=== PATIENT | male | born 1995 | race Caucasian/White ===

== ENCOUNTER 2020-12-25 23:19 | Emergency (ER) | payer MEDICAID ==
[~2020-12-25] VITALS: Ht 182.9 cm; Wt 78.0 kg
[2020-12-25 23:31] VITALS: BP 150/105
--- NOTE | 2020-12-25 23:32 | NUR ---
PATIENT AMBUALTED TO LOBBY WITH STEADY GAIT.
--- NOTE | 2020-12-25 23:35 | NUR ---
PATIENT BIB SELF FOR C/O POSSIBLE ALERGIC REACTION S/P TAKING PEP. PATIENT STATES FACIAL BURNING AND TINGLING. AIRWAY PATENT AND CLEAR. NO RESP DISTRESS NOTED. NO HIVES, RASHES NOTED. A&OX4. ABLE TO SWALLOW SALIVA. +LIGHT SENSITIVITY AND LT TEMPORAL GARCÍA. 7/10 PAIN. NO ASYMMETRICAL SMILE, STEEL ROD BUSTER, OR SENSATION. VSS. SPO2 98%. NKDA. PMH: DENIES.
--- NOTE | 2020-12-25 23:50 | NUR ---
PATIENT AMBUALTED TO BED 1 WITH STEADY GAIT.
--- NOTE | 2020-12-26 00:08 | NUR ---
GARY Freeman at bedside for Medical Evaluation.
[2020-12-26] MEDS ORDERED: GABAPENTIN 300 MG CAP PO ONE (00:10)
[2020-12-26] MEDS ORDERED: KETOROLAC 30 MG/ML VIAL IM ONE (00:10)
[2020-12-26] MEDS ORDERED: HYDROcodone/APAP 5/325 MG 1 TAB TAB PO ONE (00:10)
--- NOTE | 2020-12-26 01:10 | NUR ---
PT STILL C/O OF FACIAL PAIN AND TINGLING SENSATION. 8/10 PAIN. ERMD MADE AWARE.
[2020-12-26] MEDS ORDERED: GABA100C PO (02:01)
[2020-12-26] MEDS ORDERED: RALT400T PO (02:01)
[2020-12-26] MEDS ORDERED: ACET-9527 PO (02:01)
[2020-12-26 02:18] VITALS: BP 136/79
--- NOTE | 2020-12-26 02:18 | NUR ---
d/c with VSS. d/c education given. rx of raltegravir, norco and neurontin given. opportunity to ask questions given and answered.
== END 2020-12-26 02:18 | disposition home or self-care (01) ==
LOC: MED 23:19
DX: R51.9 Headache, unspecified (principal); R20.2 Paresthesia of skin
CPT/HCPCS: 96372; 99283; J1885